=== PATIENT | female | born 1985 | race Hispanic/Latino ===

== ENCOUNTER 2019-11-27 16:22 | Emergency (ER) | payer SELFPAY ==
[2019-11-27] MEDS ORDERED: HYDROCODONE/APAP 5/325 MG TAB ONE (17:36)
[2019-11-27] MEDS ORDERED: SMZ./TMP. 800/160 MG TABLET ONE (17:36)
--- NOTE | 2019-11-27 17:58 | ER ---
Nurse's Notes [facility] Name: Pat Gonzalez Age: 34 yrs Sex: Female : 1985 Arrival Date: 11/27/2019 Time: 16:25 Bed 15 Private MD: Diagnosis: Cutaneous abscess of neck;Cellulitis of neck Presentation: 11/26 16:33 Chief complaint: Patient states: had a pimple on right side of neck X 3 days, started iw picking at it and an abscess formed. Coronavirus screen: At this time, the client does not indicate any symptoms associated with coronavirus-19. Ebola Screen: Patient negative for fever greater than or equal to 101.5 degrees Fahrenheit, and additional compatible Ebola Virus Disease symptoms Patient denies exposure to infectious person. Patient denies travel to an Ebola-affected area in the 21 days before illness onset. No symptoms or risks identified at this time. Initial Sepsis Screen: Does the patient meet any 2 criteria? No. Patient's initial sepsis screen is negative. Does the patient have a suspected source of infection? No. Patient's initial sepsis screen is negative. Risk Assessment: Do you want to hurt yourself or someone else? Patient reports no desire to harm self or others. Onset of symptoms was November 24, 2019. 16:33 Method Of Arrival: Ambulatory iw 16:33 Acuity: QUINTIN 3 iw Historical: - Allergies: 16:37 No Known Allergies; iw - Home Meds: 16:37 None [Active]; iw - PMHx: 16:37 None; iw - PSHx: 16:37 right leg; iw - Immunization history:: Adult Immunizations Last tetanus immunization: unknown. - Social history:: Smoking status: Patient reports the use of cigarette tobacco products, smokes one pack cigarettes per day. Vital Signs: 16:33 BP 107 / 77; Pulse 100; Resp 16 S; Temp 98.5(TE); Pulse Ox 100% on R/A; Weight 74.84 iw kg; Height 5 ft. 5 in. (165.10 cm); Pain 2/10; 16:33 Body Mass Index 27.46 (74.84 kg, 165.10 cm) iw ED Course: 16:25 Patient arrived in ED. mr 16:35 Triage completed. iw 16:37 Arm band placed on. iw 16:38 Thania Woodson, RN is Primary Nurse. ll1 16:43 Hilary Holcomb FNP-C is [facility]. snw 16:43 Dusty Rousseau MD is Attending Physician. snw Administered Medications: 17:20 Drug: Hibiclens 4 % 1 application Route: Topical; Site: wound; ll1 18:12 Follow up: Response: No adverse reaction; RASS: Alert and Calm (0) ll1 17:30 Drug: Bactrim (160 mg-800 mg (DS) 1 tablet Route: PO; ll1 18:12 Follow up: Response: No adverse reaction; RASS: Alert and Calm (0) ll1 17:30 Drug: [place] 5 mg-325 mg 1 tabs {Note: RASS 0.} Route: PO; ll1 18:12 Follow up: Response: No adverse reaction; Pain is decreased; RASS: Alert and Calm (0) ll1 Outcome: 17:57 Discharge ordered by . snw 18:12 Patient left the ED. ll1 Signatures: Hilary Holcomb FNP-C APPLICATION PERFORMANCE ENGINEER-Livier IbarraLeeann Irene, RN RN iw Thania Woodson, ROXANE RN 1
--- NOTE | 2019-11-27 17:58 | EDPHYS ---
[facility] Name: Pat Gonzalez Age: 34 yrs Sex: Female : 1985 Arrival Date: 11/27/2019 Time: 16:25 Bed 15 Private MD: ED Physician Dusty Rousseau HPI: 11/26 18:03 This 34 yrs old Female presents to ER via Ambulatory with complaints of snw Abscess. 18:03 The patient presents with an abscess of the right lateral aspect of neck. Description: snw The affected area is small, localized, erythematous, swollen. Onset: The symptoms/episode began/occurred gradually. Possible cause(s): pimple manipulation. Associated signs and symptoms: Pertinent positives: erythema, swelling. Severity of symptoms: At their worst the symptoms were moderate, in the emergency department the symptoms are unchanged. The patient has not experienced similar symptoms in the past. It is unknown whether or not the patient has recently seen a physician. Historical: - Allergies: 16:37 No Known Allergies; iw - Home Meds: 16:37 None [Active]; iw - PMHx: 16:37 None; iw - PSHx: 16:37 right leg; iw - Immunization history:: Adult Immunizations Last tetanus immunization: unknown. - Social history:: Smoking status: Patient reports the use of cigarette tobacco products, smokes one pack cigarettes per day. ROS: 17:31 Constitutional: Negative for fever, chills, and weight loss, Eyes: Negative for injury, snw pain, redness, and discharge, ENT: Negative for injury, pain, and discharge, Cardiovascular: Negative for chest pain, palpitations, and edema, Respiratory: Negative for shortness of breath, cough, wheezing, and pleuritic chest pain, Abdomen/GI: Negative for abdominal pain, nausea, vomiting, diarrhea, and constipation, Back: Negative for injury and pain, : Negative for injury, bleeding, discharge, and swelling, MS/Extremity: Negative for injury and deformity, Skin: Negative for injury, rash, and discoloration, Neuro: Negative for headache, weakness, numbness, tingling, and seizure, Psych: Negative for depression, anxiety, suicide ideation, homicidal ideation, and hallucinations. 17:31 Neck: Positive for Exam: 17:27 Constitutional: This is a well developed, well nourished patient who is awake, alert, snw and in no acute distress. Head/Face: Normocephalic, atraumatic. Eyes: Pupils equal round and reactive to light, extra-ocular motions intact. Lids and lashes normal. Conjunctiva and sclera are non-icteric and not injected. Cornea within normal limits. Periorbital areas with no swelling, redness, or edema. ENT: Nares patent. No nasal discharge, no septal abnormalities noted. Tympanic membranes are normal and external auditory canals are clear. Oropharynx with no redness, swelling, or masses, exudates, or evidence of obstruction, uvula midline. Mucous membranes moist. Chest/axilla: Normal chest wall appearance and motion. Nontender with no deformity. No lesions are appreciated. Cardiovascular: Regular rate and rhythm with a normal S1 and S2. No gallops, murmurs, or rubs. Normal PMI, no JVD. No pulse deficits. Respiratory: Lungs have equal breath sounds bilaterally, clear to auscultation and percussion. No rales, rhonchi or wheezes noted. No increased work of breathing, no retractions or nasal flaring. Abdomen/GI: Soft, non-tender, with normal bowel sounds. No distension or tympany. No guarding or rebound. No evidence of tenderness throughout. Back: No spinal tenderness. No costovertebral tenderness. Full range of motion. Skin: Warm, dry with normal turgor. Normal color with no rashes, no lesions, and no evidence of cellulitis. MS/ Extremity: Pulses equal, no cyanosis. Neurovascular intact. Full, normal range of motion. Neuro: Awake and alert, GCS 15, oriented to person, place, time, and situation. Cranial nerves II-XII grossly intact. Motor strength 5/5 in all extremities. Sensory grossly intact. Cerebellar exam normal. Normal gait. Psych: Awake, alert, with orientation to person, place and time. Behavior, mood, and affect are within normal limits. 17:27 Neck: External neck: abscess, that is small, of the right lateral aspect of neck, with surrounding cellulitis. Vital Signs: 16:33 BP 107 / 77; Pulse 100; Resp 16 S; Temp 98.5(TE); Pulse Ox 100% on R/A; Weight 74.84 iw kg; Height 5 ft. 5 in. (165.10 cm); Pain 2/10; 16:33 Body Mass Index 27.46 (74.84 kg, 165.10 cm) iw Procedures: 18:02 used needle to cut area superficially, superficial loculations . area overlies snw jugular.. MDM: 16:56 Patient medically screened. snw 18:03 Data reviewed: vital signs, nurses notes. Data interpreted: Pulse oximetry: on room air snw is 100 %. Interpretation: normal. Counseling: I had a detailed discussion with the patient and/or guardian regarding: the historical points, exam findings, and any diagnostic results supporting the discharge/admit diagnosis, the need for outpatient follow up, to return to the emergency department if symptoms worsen or persist or if there are any questions or concerns that arise at home. Special discussion: Based on the history and exam findings, there is no indication for further emergent testing or inpatient evaluation. I discussed with the patient/guardian the need to see the primary care provider for further evaluation of the symptoms. Administered Medications: 17:20 Drug: Hibiclens 4 % 1 application Route: Topical; Site: wound; ll1 18:12 Follow up: Response: No adverse reaction; RASS: Alert and Calm (0) ll1 17:30 Drug: Bactrim (160 mg-800 mg (DS) 1 tablet Route: PO; ll1 18:12 Follow up: Response: No adverse reaction; RASS: Alert and Calm (0) ll1 17:30 Drug: [place] 5 mg-325 mg 1 tabs {Note: RASS 0.} Route: PO; ll1 18:12 Follow up: Response: No adverse reaction; Pain is decreased; RASS: Alert and Calm (0) ll1 Disposition: 11/27 09:42 Co-signature as Attending Physician, Dusty Rousseau MD I agree with the assessment and kdr plan of care. Disposition: 11/27/19 17:57 Discharged to Home. Impression: Cutaneous abscess of neck, Cellulitis of neck. - Condition is Stable. - Discharge Instructions: Skin Abscess, Cellulitis, Adult, Heat Therapy, MRSA FAQs - WATESR. - Prescriptions for Bactroban 2 % Topical Ointment - apply 1 application by INTRANASAL route every 12 hours for 5 days; 15 gram. Diclofenac Sodium 75 mg Oral Tablet Sustained Release - take 1 tablet by ORAL route 2 times per day; 30 tablet. Bactrim DS 800- 160 mg Oral Tablet - take 1 tablet by ORAL route every 12 hours for 10 days; 20 tablet. - Work release form, Medication Reconciliation Form, Thank You Letter, Antibiotic Education, Prescription Opioid Use form. - Follow up: Emergency Department; When: As needed; Reason: Worsening of condition. Follow up: Private Physician; When: 2 - 3 days; Reason: Recheck today's complaints, Continuance of care, Re-evaluation by your physician. Signatures: Dusty Rousseau MD MD kdr Waters, Shelly, MACHINIST BRAKE-C MACHINIST BRAKE-Csnw Margarita Palomo, ROXANE RN iw Thania Woodson RN RN ll1 Corrections: (The following items were deleted from the chart) 11/26 18:12 17:57 11/27/2019 17:57 Discharged to Home. Impression: Cutaneous abscess of neck; ll1 Cellulitis of neck. Condition is Stable. Forms are Medication Reconciliation Form, Thank You Letter, Antibiotic Education, Prescription Opioid Use. Follow up: Emergency Department; When: As needed; Reason: Worsening of condition. Follow up: Private Physician; When: 2 - 3 days; Reason: Recheck today's complaints, Continuance of care, Re-evaluation by your physician. snw
[2019-11-27 18:25] VITALS: BP 107/77; TEMP 98.5; O2SAT 100
== END 2019-11-27 18:12 | disposition home or self-care (01) ==
LOC: ER 16:22
DX: L03.221 Cellulitis of neck (principal); F17.210 Nicotine dependence, cigarettes, uncomplicated
CPT/HCPCS: 99282

== ENCOUNTER 2024-05-21 14:18 | Emergency (ER) | payer SELFPAY ==
--- OUTSIDE RECORDS SUMMARY | 2024-05-21 14:20 | XMS REPORT | Continuity of Care Document ---
Author Name Unknown Address [address] [facility] [address] [place] [address] [facility] Address [address] [facility] [address] [place] [address] Care Team Providers Care Route Service Representative Name Role Phone Joslyn Attending Clinician Unavailable AldoDontima Admitting Clinician Unavailable Payers Payer Name Policy Type Policy Number Effective Date Expirati on Date Source Social History Smoking Status Start Date Stop Date Source Never Smoker [facility] Vital Signs Vital Name Observation Time Observation Value Comments S ource BP Systolic 2021-07-16 00:00:00 129 mm[Hg] [facility] Body Weight 2021-07-16 00:00:00 165 [lb_av] [facility] BP Diastolic 2021-07-16 00:00:00 71 mm[Hg] [facility] Encounters Start Date/Time End Date/Time Encounter Type Admission Type Attending Clinicians Care Facility Care Department Encounter ID Source 2021-07-16 03:25:00 2021-07-16 03:25:00 Outpatient [facility] [id number] [facility] 2021-07-16 03:25:00 2021-07-16 03:25:00 Outpatient [facility] [id number] [facility] 2021-07-16 00:00:00 2021-07-16 00:00:00 Jermaine Perdomo MD: [address] [facility] [address], [place] [address] , Ph. [facility] [id number] [facility] 2021-07-10 04:13:00 2021-07-10 04:13:00 Outpatient [facility] [id number] [facility]
--- NOTE | 2024-05-21 14:39 | EDPHYS ---
Physician Documentation [facility] Name: Pat Gonzalez Age: 38 yrs Sex: Female : 1985 Arrival Date: 05/21/2024 Time: 14:18 Bed IW1 Private MD: ED Physician Hair Cordova HPI: 05/21 17:14 This 38 yrs old Female presents to ER via Ambulatory with complaints of Ear dr5 Pain. 17:14 The patient presents with pain. The complaints affect the right ear. Patient is a dr5 38-year-old female with no past med history coming in with right ear pain and right ear drainage that started yesterday. Patient states that she has had this before in the past. Patient denies fever, difficulty hearing, or any other symptoms.. 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 - Infectious Disease History:: Denies. - Social history:: Smoking status: Patient reports the use of cigarette tobacco products, smokes one pack cigarettes per day. ROS: 17:15 Constitutional: as per hpi dr5 Exam: 17:15 Constitutional: This is a well developed, well nourished patient who is awake, alert, dr5 and in no acute distress. Head/Face: Normocephalic, atraumatic. Eyes: Pupils equal round and reactive to light, extra-ocular motions intact. Lids and lashes normal. Conjunctiva and sclera are non-icteric and not injected. Cornea within normal limits. Periorbital areas with no swelling, redness, or edema. Neck: Trachea midline, no thyromegaly or masses palpated, and no cervical lymphadenopathy. Supple, full range of motion without nuchal rigidity, or vertebral point tenderness. No Meningismus. Chest/axilla: Normal chest wall appearance and motion. Nontender with no deformity. No lesions are appreciated. Cardiovascular: Regular rate and rhythm with a normal S1 and S2. Normal PMI, no JVD. No pulse deficits. Abdomen/GI: Soft, non-tender, non-distended Back: No spinal tenderness. No costovertebral tenderness. Full range of motion. 17:15 ENT: Ear canal(s): purulent discharge, that is minimal, in the right canal, TM's: are normal, Examination of the other ear shows no obvious abnormality, Vital Signs: 14:25 BP 134 / 77; Pulse 87; Resp 17; Temp 97.9; Pulse Ox 100% ; Weight 61.23 kg; Height 5 ll1 ft. 5 in. ; Pain 5/10; 14:25 Body Mass Index 22.46 (61.23 kg, 165.1 cm) ll1 14:25 Pain Scale: Adult ll1 MDM: 14:22 Medical Screening Exam initiated dr5 17:15 Differential diagnosis: otitis media, otitis externa, ruptured TM. Data reviewed: vital dr5 signs, nurses notes. Care significantly affected by the following Social Determinants of Health: Poor access to healthcare and/or lack of insurance, Poor access to transportation, Problems related to employment. Counseling: I had a detailed discussion with the patient and/or guardian regarding the historical points, exam findings, and any diagnostic results supporting the discharge/admit diagnosis, the presence of at least one elevated blood pressure reading (>120/80) during this emergency department visit, the need for outpatient follow up, for definitive care, an ENT specialist, a family practitioner, to return to the emergency department if symptoms worsen or persist or if there are any questions or concerns that arise at home. ED course: Will give patient antibiotics for right-sided otitis externa. Will have patient follow-up primary care doctor and ENT this week as needed. All questions answered. Strict ER precautions given.. Administered Medications: No medications were administered Disposition Summary: 05/21/24 14:39 Discharge Ordered Notes: Location: Home dr5 Condition: Stable dr5 Diagnosis - Other otitis externa, right ear dr5 Followup: dr5 - With: Emergency Department - When: As needed - Reason: Worsening of condition Followup: dr5 - With: Private Physician - When: 1 - 2 days - Reason: Recheck today's complaints, Continuance of care, Re-evaluation by your physician Discharge Instructions: - Discharge Summary Sheet ll1 - Otitis Externa dr5 Forms: - Work release form ll1 - Medication Reconciliation Form dr5 - Antibiotic Education dr5 - Patient Portal Instructions dr5 - Leadership Thank You Letter dr5 Prescriptions: - Ciprodex 0.3-0.1 % Otic drops, suspension - instill 4 drops OTIC route every 12 hours for 7 days , for ears ONLY; 60 drop; dr5 Refills: 0, Product Selection Permitted Signatures: Thania Woodson, RN RN ll1 Dave Romero, ANGE-C DELINQUENT NOTICE MACHINE OPERATOR-Cdr5
--- NOTE | 2024-05-21 14:39 | ER ---
Nurse's Notes [facility] Name: Pat Gonzalez Age: 38 yrs Sex: Female : 1985 Arrival Date: 05/21/2024 Time: 14:18 Bed IW1 Private MD: Diagnosis: Other otitis externa, right ear Presentation: 05/21 14:25 Chief complaint: Patient states: B ear pains, cough, congestion for 2 days. Coronavirus ll1 screen: Client denies travel out of the [place] in the last 14 days. cough unrelated to allergies, fatigue, headache, Client presents with at least one sign or symptom that may indicate coronavirus-19. Standard/surgical mask placed on the client. Ebola Screen: Patient denies travel to an Ebola-affected area in the 21 days before illness onset. Initial Sepsis Screen: Does the patient meet any 2 criteria? No. Patient's initial sepsis screen is negative. Does the patient have a suspected source of infection? No. Patient's initial sepsis screen is negative. Risk Assessment: Do you want to hurt yourself or someone else? Patient reports no desire to harm self or others. Onset of symptoms was May 20, 2024. 14:25 Method Of Arrival: Ambulatory ll1 14:25 Acuity: QUINTIN 4 ll1 Triage Assessment: 14:25 General: Appears uncomfortable, Behavior is calm, cooperative, appropriate for age, ll1 Reports fatigue for. Pain: Complains of pain in right ear and left ear Quality of pain is described as aching. EENT: Reports nasal congestion pain in left ear and right ear. Respiratory: Reports cough that is. 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 - Infectious Disease History:: Denies. - Social history:: Smoking status: Patient reports the use of cigarette tobacco products, smokes one pack cigarettes per day. Screenin:42 [facility] ED Fall Risk Assessment (Adult) History of falling in the last 3 months, ll1 including since admission No falls in past 3 months (0 pts) Confusion or Disorientation No (0 pts) Intoxicated or Sedated No (0 pts) Impaired Gait No (0 pts) Mobility Assist Device Used No (0 pt) Altered Elimination No (0 pt) Score/Fall Risk Level 0 - 2 = Low Risk Maintained a safe environment, Hourly rounding (assess needs \T\ fall precautionary measures) done. Abuse screen: Denies threats or abuse. Nutritional screening: No deficits noted. Tuberculosis screening: No symptoms or risk factors identified. Assessment: 14:42 Reassessment: No changes from previously documented assessment. Patient and/or family ll1 updated on plan of care and expected duration. Pain level reassessed. Patient is alert, oriented x 3, equal unlabored respirations, skin warm/dry/pink. Vital Signs: 14:25 BP 134 / 77; Pulse 87; Resp 17; Temp 97.9; Pulse Ox 100% ; Weight 61.23 kg; Height 5 ll1 ft. 5 in. ; Pain 5/10; 14:25 Body Mass Index 22.46 (61.23 kg, 165.1 cm) ll1 14:25 Pain Scale: Adult ll1 ED Course: 14:21 Patient arrived in ED. rg4 14:22 Dave Romero FNP-C is [facility]. dr5 14:22 Hair Cordova MD is Attending Physician. dr5 14:26 Triage completed. ll1 14:26 Arm band placed on. ll1 14:42 No provider procedures requiring assistance completed. Patient did not have IV access ll1 during this emergency room visit. 14:43 Patient has correct armband on for positive identification. Provided Education on: ll1 finish all prescribed antibiotics. Administered Medications: No medications were administered Medication: 14:43 VIS not applicable for this client. ll1 Outcome: 14:39 Discharge ordered by . dr5 14:43 Discharged to home ambulatory, ll1 14:43 Condition: stable 14:43 Discharge instructions given to patient, Instructed on discharge instructions, follow up and referral plans. medication usage, Demonstrated understanding of instructions, follow-up care, medications, Prescriptions given X 1, 14:43 Patient left the ED. ll1 Signatures: Luana Ware rg4 Thania Woodson RN RN ll1 Dave Romero FNP-C DESULFURIZER OPERATOR-Cdr5
[2024-05-21 14:52] VITALS: BP 134/77; TEMP 97.9; O2SAT 100
== END 2024-05-21 14:43 | disposition home or self-care (01) ==
LOC: ER 14:18
DX: H60.8X1 Other otitis externa, right ear (principal)
CPT/HCPCS: 99283